=== PATIENT | female | born 1995 | race Caucasian/White ===

== ENCOUNTER → 2017-03-06 | Outpatient (REF) | payer OTHER, SELFPAY ==
[~2017-03-06] MED LIST: ALBUTEROL; Albuterol Neb INH; CEFD250S PO; Depo Provera IM; TYLE325T5 PO; ZITHTAB PO; [UNRECOGNIZED DRUG - OTHER] PO; [UNRECOGNIZED DRUG - OTHER] PO
== END ==
LOC: M SFHCLERA 17:02
PROVIDERS: ATTEND Nurse Practitioner Family
DX: R30.0 Dysuria (principal)